=== PATIENT | female | born 1990 | race American Indian/Alaskan Native ===

== ENCOUNTER 2016-12-05 05:30 | Inpatient (IN) | payer MEDICAID ==
[2016-12-05] MEDS ORDERED: PEPCID IV ONE (05:48)
[2016-12-05] MEDS ORDERED: REGLAN IV ONE (05:48)
[2016-12-05] MEDS ORDERED: BICITRA PO ONE (05:48)
[2016-12-05] MEDS ORDERED: LACTATED RINGERS 1,000 ML IV SCH (06:00)
[2016-12-05] MEDS ORDERED: PITOCin/NS 20 UNIT/1000ML DRIP 20 UNITS/1,000 ML BAG IV SCH ×2 (06:00→12:41)
[2016-12-05 06:13] LABS: Basophils % (Auto) 0.6 % (0.0-1.8); Eosinophils % (Auto) 1.4 % (0.0-4.3); Hematocrit 32.1 % (30.3-42.9); Hemoglobin 11.1 gm/dl (10.1-14.3); Mean Corpuscular HGB Conc 35 % (30-34); Mean Corpuscular Hemoglobin 32 pg (28-32); Mean Corpuscular Volume 92 fl (79-97); Platelet Count 241 K/mm3 (140-440); Red Blood Count 3.51 M/mm3 (3.65-5.03); Red Cell Distribution Width 13.7 % (13.2-15.2); White Blood Count 8.2 K/mm3 (4.5-11.0)
[2016-12-05] MEDS ORDERED: THROMBIN (BOVINE) TP ONE (06:41)
[2016-12-05] MEDS ORDERED: GELFOAM POWDER 1GM MM ONE (06:42)
--- NOTE | 2016-12-05 07:47 | History and Physical Report ---
History of Present Illness Date of examination: 12/05/16 Date of admission: 12/05/16 05:30 Chief complaint: scheduled section History of present illness: Pt is a 26 year old female CHERELLE 12/12/16 at 39w0d who presents for scheduled section secondary to previous section x 2. She reports irregular contractions and denies vaginal bleeding or leakage of fluid. She reports irregular contractions. She has had care at [facility] since 10 wks complicated by anemia on iron supplementation, and genital herpes on Valtrex suppression. She is GBS positive. Past History Past Medical History: other (heart murmur) Past Surgical History: section (x 2 ) [employer] [facility] History: abnormal PAP smear, herpes Family/Genetic History: other (hearing loss) Social history: no significant social history - Obstetrical History Expected Date of Delivery: 12/12/16 Actual Gestation: 39 Week(s) 0 Day(s) : 4 Para: 2 Hx # Term Pregnancies: 2 Number of Pregnancies: 0 Spontaneous Abortions: 0 Induced : 1 Number of Living Children: 2 Medications and Allergies Allergies Allergy/AdvReac Type Severity Reaction Status Date / Time Penicillins AdvReac Hives Verified 04/23/13 10:21 Home Medications Medication Instructions Recorded Confirmed Last Taken Type No Known Home Medications [No 04/23/13 04/23/13 Unknown History Reported Home Medications] Active Meds: Active Medications Lactated Ringer's (Lactated Ringers) 1,000 mls @ 2,250 mls/hr IV PREOP DORIS Stop: 12/06/16 06:27 Last Admin: 12/05/16 05:55 Dose: 2,250 mls/hr Oxytocin/Sodium Chloride (Pitocin/Ns 20 Unit/1000ml Drip) 20 units in 1,000 mls @ 0 mls/hr IV TITR DORIS PRN Reason: As Directed Clindamycin HCl (Cleocin 600 Mg/50 Ml) 600 mg in 50 mls @ 100 mls/hr IV PREOP NR PRN Reason: Protocol Stop: 12/05/16 08:01 Gentamicin Sulfate/Sodium Chloride (Garamycin/Ns 120mg/100ml) 120 mg in 100 mls @ 200 mls/hr IV PREOP DORIS Stop: 12/05/16 10:00 Review of Systems All systems: negative - Vital Signs Vital signs: Vital Signs Temp Pulse Resp Pulse Ox 98.3 F 85 18 96 12/05/16 06:17 12/05/16 06:17 12/05/16 06:17 12/05/16 06:17 Temp Pulse Resp BP Pulse Ox 98.3 F 82 18 97 12/05/16 06:17 12/05/16 06:44 12/05/16 06:17 12/05/16 06:44 - Physical Exam Breasts: Positive: deferred Cardiovascular: Regular rate Lungs: Positive: Clear to auscultation Abdomen: Positive: soft (obese) Uterus: Positive: enlarged (gravid ) Extremities: Positive: normal - Obstetrical FHR: auscultation normal Uterine Contraction Monitor Mode: External Uterine Contraction Pattern: Irregular Uterine Tone Measurement Phase: Resting Results Result Diagrams: 12/05/16 05:55 Abnormal lab results 12/05/16 Range/Units 05:55 RBC 3.51 L (3.65-5.03) M/mm3 MCHC 35 H (30-34) % [place] % (Auto) 9.1 H (0.0-7.3) % All other labs normal. Assessment and Plan A: IUP at 39w0d Previous x 2 Genital herpes on Valtrex suppression P: Proceed with repeat section and other indicated procedures.
[2016-12-05] MEDS ORDERED: GARAMYCIN 120 MG in NACL 0.9% 100 ML IV SCH (08:00)
[2016-12-05] MEDS ORDERED: CLEOCIN 600 MG/50 mL 600 MG/50 ML BAG IV NR (08:00)
[2016-12-05] MEDS ORDERED: GARAMYCIN/NS 120MG/100ML 120 MG/100 ML BAG IV SCH (08:00)
--- NOTE | 2016-12-05 08:21 | Procedure Note ---
OB Delivery Note - Delivery Date of Delivery: 12/05/16 Surgeon: REBECCA GOLDMAN Estimated blood loss: other (750 mL) - Section Preop diagnosis: repeat , breech Postop diagnosis: same section procedure: section, repeat low transverse Disposition: PACU Complications: none Narrative: Please see operative note. - A at 1 minute: 8 at 5 minutes: 9 Gender: Female (2699g (5lb 15 oz))
--- NOTE | 2016-12-05 08:23 | Operative Report ---
Operative Report Operative Report: Date of procedure: December 05, 2016 Preoperative diagnosis: 1) IUP at 39w0d 2) Previous x 2 3) Malpresentation Postoperative diagnosis: Same Procedure: Repeat low transverse section Surgeon: Ludy Lozano M.D. Anesthesia: Spinal-epidural Findings: 1) Viable female , Apgars 8 and 9, weight 2699g, (5 lb 15 oz) in footling breech presentation 2) Normal-appearing uterus ovaries and tubes Estimated blood loss: 750 mL IV fluids: 1800 mL Urine output: 600 mL, clear at the end of the procedure Drains: Natarajan to gravity Specimens: None Complications: None. Counts correct x 2 Disposition: Stable to PACU Indication for procedure: Pt is a 26 year old -[place] female at 39w0d with a h/o two previous sections and malpresentation who presents for repeat delivery. Operation in detail: After the risks, benefits, alternatives and complications were explained to the patient she gave informed consent for the procedure. She was subsequently taken to the operating room where spinal-epidural anesthesia was noted to be adequate. She was subsequently placed in the dorsal supine position with leftward tilt and prepped and draped in a normal sterile fashion. heart tones were noted to be in the 130s prior to incision. A timeout was performed. A Pfannenstiel skin incision was made with the knife and carried down to the layer of the fascia with the Bovie. The fascia was incised in the midline and the fascial incision was extended bilaterally with the Bovie. Attention was then turned to the superior aspect of the incision which was grasped with two Kochers, tented up, and dissected off the rectus muscles. Attention was then turned to the inferior aspect of the incision which was grasped with two Kochers , tented up and dissected off the rectus muscles. The rectus muscles were then in the midline. The peritoneum was then entered bluntly. The peritoneal incision was extended with good visualization of the bladder. The peritoneal incision was then stretched. An Harmeet self-retaining retractor was placed for visualization. The bladder blade was placed. The vesicouterine peritoneum was grasped with smooth pickups and incised with Metzenbaum scissors. Metzenbaum scissors were used to extend the incision bilaterally. The bladder flap was then created digitally and the bladder blade was replaced. A transverse incision was made in the lower uterine segment with a knife and extended bilaterally with the bandage scissors. The bottom and legs were delivered without difficulty followed by arms, shoulders and head without difficulty. was bulb suctioned at delivery. The cord was clamped and cut and the was handed to NICU staff in attendance. Cord blood was collected. The placenta was then delivered manually. The uterus was then cleared of all clots and debris. The hysterotomy was then reapproximated with 0 Vicryl in a running locked fashion. A second layer of the same suture was used in imbricating fashion. The hysterotomy was inspected and hemostasis was noted. The Harmeet self-retaining retractor was removed. The gutters were irrigated and cleared of all clots and debris. The hysterotomy was again inspected and noted to be hemostatic. Gel foam was placed over the hysterotomy. Intercede was placed on the anterior surface of the uterus. The rectus muscles and peritoneum were then reapproximated in a single layer with 2-0 Vicryl in a running fashion. Areas of bleeding in the right rectus muscles were reapproximated wtih 3-0 Vicryl in a running locked fashion. The rectus muscles were covered with Surgicel bilaterally.The fascia was reapproximated with 0 Vicryl in a running fashion. The subcutaneous tissue was reapproximated with 3-0 Vicryl in a running fashion. The skin was reapproximated with 4-0 Vicryl in a running fashion. The incision was then covered with steri strips and a pressure dressing. The procedure was then ended. The patient tolerated the procedure well and was taken to the PACU in stable condition. All instrument, lap, and needle counts were correct 3.
[2016-12-05] MEDS ORDERED: ZOFRAN ONE (08:49)
[2016-12-05] MEDS ORDERED: NEO SYNEPHRINE/NS Syringe(OR USE) IV ONE (09:00)
[2016-12-05] MEDS ORDERED: MORPHINE ONE (09:33)
[2016-12-05] MEDS ORDERED: VERSED ONE (10:18)
[2016-12-05] MEDS ORDERED: TYLENOL PO PRN (12:41)
[2016-12-05] MEDS ORDERED: LANSINOH TP PRN (12:41)
[2016-12-05] MEDS ORDERED: TUCKS PAD TP PRN (12:41)
[2016-12-05] MEDS ORDERED: MYLICON PO PRN (12:41)
[2016-12-05] MEDS ORDERED: MORPHINE IV PRN ×2 (12:41)
[2016-12-05] MEDS ORDERED: NARCAN 0.4 MG/1 ML IV PRN (12:41)
[2016-12-05] MEDS ORDERED: SODIUM CHLORIDE FLUSH SYRINGE 10 ML IV NR (12:41)
[2016-12-05] MEDS ORDERED: TORADOL IV PRN (12:41)
[2016-12-05] MEDS: ZOFRAN IV PRN (13:22)
[2016-12-05 23:42] LABS: Hematocrit 31.6 % (30.3-42.9); Hemoglobin 10.5 gm/dl (10.1-14.3)
[2016-12-06] MEDS: PERCOCET 5/325 PO PRN ×4 (00:16→23:11)
[2016-12-06] MEDS: FEOSOL PO SCH ×3 (00:17→22:55)
[2016-12-06] MEDS: MOTRIN PO PRN ×3 (00:25→18:34)
[2016-12-06] MEDS: MILK OF MAGNESIA PO SCH ×2 (00:25→17:05)
[2016-12-06] MEDS: ZOFRAN IV PRN (01:09)
--- NOTE | 2016-12-06 08:28 | Progress Note ---
Assessment and Plan A: POD#1 s/p repeat section at term, Asymptomatic anemia P: Routine postop care. Subjective - Subjective Date of service: 12/06/16 Principal diagnosis: s/p repeat Interval history: Pt without complaints. Multiple episodes of nausea and vomiting yesterday. Pt feels well over all. Patient reports: appetite normal, voiding normally, ambulating normally, nauseated (earlier, ), no flatus, no bowel movement : doing well Objective - Vital Signs Latest vital signs: Vital Signs Temp Pulse Resp BP 12/06/16 04:12 98.2 F 68 18 99/67 12/05/16 23:40 98.3 F 62 18 98/54 12/05/16 20:00 98.5 F 67 16 109/66 12/05/16 17:40 97.4 F L 63 18 90/56 12/05/16 12:00 97.8 F 61 18 103/59 Intake and Output 12/05/16 12/06/16 12/06/16 22:59 06:59 14:59 Intake Total 480 480 Output Total 600 800 Balance -120 -320 Intake: Oral 480 Intake, Free Water 480 Output: Urine 600 800 Indwelling Catheter 600 800 Other: Total, Intake Amount 120 Total, Output Amount 600 800 # Voids Void 0 - Exam Breasts: Present: deferred Cardiovascular: Present: Regular rate Lungs: Present: Clear to auscultation Abdomen: Present: soft, distention (moderate ), normal bowel sounds (hypoactive ) Uterus: Present: fundal height at umbilicus Extremities: Present: normal Incision: Present: dressed
[2016-12-06] MEDS ORDERED: BOOSTRIX IM ONE (10:25)
[2016-12-06] MEDS ORDERED: M-M-R II VACCINE SUB-Q ONE (10:25)
[2016-12-06] MEDS: PRENATAL VITAMIN PO SCH (10:52)
[2016-12-07] MEDS: MILK OF MAGNESIA PO SCH ×2 (07:39→12:48)
--- NOTE | 2016-12-07 09:26 | Progress Note ---
Subjective Date of service: 12/07/16 Principal diagnosis: s/p repeat Interval history: No anesthetic related complaints. Objective - Constitutional Vitals: Vital Signs - 12hr 12/06/16 23:54 Temperature 98.0 F Pulse Rate 68 Respiratory 18 Rate Blood Pressure 100/56 - Labs CBC & Chem 7: 12/05/16 23:18
[2016-12-07] MEDS: PRENATAL VITAMIN PO SCH (10:20)
[2016-12-07] MEDS: PERCOCET 5/325 PO PRN (10:20)
[2016-12-07] MEDS: FEOSOL PO SCH (10:20)
[2016-12-07 16:31] VITALS: BP 96/63
--- NOTE | 2016-12-07 17:22 | Progress Note ---
Assessment and Plan POD 2 s/p rltcs. Doing well. Patient requesting discharge on today. Will proceed with same. Subjective - Subjective Date of service: 12/07/16 Principal diagnosis: s/p repeat Patient reports: appetite normal, voiding normally, pain well controlled, ambulating normally : doing well Objective - Vital Signs Latest vital signs: Vital Signs Temp Pulse Resp BP 12/07/16 16:10 97.7 F 63 18 96/63 12/07/16 08:14 98.2 F 66 18 90/48 12/06/16 23:54 98.0 F 68 18 100/56 Intake and Output 12/07/16 12/07/16 12/07/16 06:59 14:59 22:59 Intake Total 960 Balance 960 Intake: Oral 960 Other: Total, Intake Amount 240 # Voids Void 1 - Exam Breasts: Present: deferred Cardiovascular: Present: Regular rate, Normal S1, Normal S2 Lungs: Present: Clear to auscultation, Normal air movement Abdomen: Present: normal appearance, soft, normal bowel sounds Uterus: Present: normal, firm Extremities: Present: normal Deep Tendon Reflex Grade: Normal +2 Incision: Present: normal, dry
--- NOTE | 2016-12-07 17:24 | Discharge Summary ---
Providers - Providers Date of Admission: 12/05/16 05:30 Date of discharge: 12/07/16 Attending physician: REBECCA GOLDMAN 12/05/16 12:41 Consult to Music Education Director [CONS] Routine Reason For Exam: Primary care physician: REBECCA GOLDMAN Hospitalization Reason for admission: section Delivery: Procedure: repeat low transverse Laceration: none Incision: normal, dressed (no active bleeding) complications: none Discharge diagnosis: IUP at term delivered baby: female Condition at discharge: Good Disposition: DC-01 TO HOME OR SELFCARE Plan - Discharge Medications Prescriptions: Ibuprofen [Motrin] 800 mg PO Q8HR PRN #30 tablet PRN Reason: Pain oxyCODONE /ACETAMINOPHEN [Percocet 5/325] 1 tab PO Q6HR PRN #30 tablet PRN Reason: Pain - Provider Discharge Summary Activity: routine, no sex for 6 weeks, no heavy lifting 4 weeks, no strenuous exercise Diet: routine Instructions: routine Additional instructions: [] Smoking cessation referral if applicable(refer to patient education folder for contact #) [] Refer to [facility] Booklet Call your doctor immediately for: * Fever > 100.5 * Heavy vaginal bleeding ( >1 pad per hour) * Severe persistent headache * Shortness of breath * Reddened, hot, painful area to leg or breast * Drainage or odor from incision. * Keep incision clean and dry at all times and follow doctor's instructions regarding bathing/showering - Follow up plan Follow up: REBECCA GOLDMAN MD [Primary Care Provider] - 7 Days Forms: [facility] Discharge Summary
== END 2016-12-07 18:10 | disposition home or self-care (01) | DRG 765 ==
LOC: APU 05:30 → OB 13:08
PROVIDERS: ADMIT Obstetrics & Gynecology; ATTEND Obstetrics & Gynecology
PROC: 10D00Z1 Extraction of Products of Conception, Low, Open Approach (ICD-10-PCS; principal; 2016-12-05)
PROC: 3E0234Z Introduction of Serum, Toxoid and Vaccine into Muscle, Percutaneous Approach (ICD-10-PCS; 2016-12-06)
DX: O34.211 Maternal care for low transverse scar from previous cesarean delivery (principal); O98.32 Other infections with a predominantly sexual mode of transmission complicating childbirth; O32.8XX0 Maternal care for other malpresentation of fetus, not applicable or unspecified; O99.02 Anemia complicating childbirth; D64.9 Anemia, unspecified; O99.824 Streptococcus B carrier state complicating childbirth; A60.00 Herpesviral infection of urogenital system, unspecified; Z3A.39 39 weeks gestation of pregnancy; Z37.0 Single live birth; Z23 Encounter for immunization; Z79.899 Other long term (current) drug therapy
CPT/HCPCS: 36415; 85014; 85018; 85025; 86850; 86900; 86901; 99211; A6250; C1765; G0463; J1580; J1885; J2250; J2270; J2370; J2405; J2590; J2765; J7120